=== PATIENT | male | born 1955 | race Caucasian/White ===

== ENCOUNTER 2024-07-02 16:34 | Emergency (ER) | payer OTHER, SELFPAY ==
[2024-07-02 16:55] VITALS: BP 143/78; PULSE 86; RESP 16; TEMP 36.4; O2SAT 91; BMI 25.9
[2024-07-02 21:37] VITALS: BP 153/96; PULSE 106; RESP 19; O2SAT 90
--- NOTE | 2024-07-02 21:48 | ED_ITS ---
HPI - Recheck/Abnormal Lab/Rx General: Chief Complaint: Recheck/Abnormal Lab/Rx Stated Complaint: [facility] Time Seen by Provider: 07/02/24 21:44 History of Present Illness: 68-year-old man who [place] emergency [place] the [place] with concern for low oxygen. In clinic today his oxygen saturations were in the upper 80s. Here he remains in the low 90s. He says he drove there and has not been feeling any more short of breath than usual. No chest pain. No altered mental status. He says he was also told that his lipids were elevated Related Data Allergies Allergy/AdvReac Type Severity Reaction Status Date / Time No Known Allergies Allergy Verified 07/02/24 21:41 Review of Systems Narrative: Constitutional symptoms: Negative except as documented in HPI. Skin symptoms: Negative except as documented in HPI. Eye symptoms: Negative except as documented in HPI. ENMT symptoms: Negative except as documented in HPI. Respiratory symptoms: Negative except as documented in HPI. Cardiovascular symptoms: Negative except as documented in HPI. Gastrointestinal symptoms: Negative except as documented in HPI. Genitourinary symptoms: Negative except as documented in HPI. Musculoskeletal symptoms: Negative except as documented in HPI. Neurologic symptoms: Negative except as documented in HPI. Psychiatric symptoms: Negative except as documented in HPI. Endocrine symptoms: Negative except as documented in HPI. Physical Exam Narrative: EXAM NARRATIVE: General: Alert, no acute distress. Skin: Warm, dry. Head: Normocephalic, atraumatic. Neck: Supple, trachea midline. Eye: Extraocular movements are intact. Ears, nose, mouth and throat: mucosa moist. Cardiovascular: Regular, Normal peripheral perfusion. Respiratory: Lungs are clear to auscultation, respirations are non-labored, breath sounds are equal, Symmetrical chest wall expansion. Gastrointestinal: Soft, Nontender, Non distended Musculoskeletal: Normal ROM, no deformity. Neurological: Alert and oriented, No focal neurological deficit observed. Psychiatric: Cooperative, appropriate mood & affect. Course Vital Signs: Vital signs: Vital Signs Temperature 97.5 F L 07/02/24 16:55 Pulse Rate 106 H 07/02/24 21:37 Respiratory Rate 19 H 07/02/24 21:37 Blood Pressure 153/96 07/02/24 21:37 Pulse Oximetry 90 07/02/24 21:37 Oxygen Delivery Me thod Room Air 07/02/24 21:37 MDM - Recheck/Abnormal Lab/Rx Medical Decision Making Patient's O2 sats are ranging between 89 and 92 here on room air. He is completely asymptomatic. He may need to be on oxygen chronically but not emergently. He says he can walk up 2 flights of stairs and he might get short of breath for him but otherwise he is completely asymptomatic. We are printing out blood gas he can get that to his primary and this may be that he needs to qualify for home oxygen. Assessment and plan: COPD hypoxemia. - Discharged home - Discussed plan with patient. Answered any questions. - Evaluation and treatment of this problem were appropriate in the emergency setting. Lab Data Laboratory Results Specimen Type Arterial 07/02/24 21:12 Sample Site Radial, right 07/02/24 21:12 ABG pH 7.49 (7.35-7.45) H 07/02/24 21:12 ABG pCO2 33.8 mmHg (35-45) L 07/02/24 21:12 ABG pO2 50.0 mmHg (80.0-100.0) L 07/02/24 21:12 ABG PO2/FiO2 Ratio 238 07/02/24 21:12 ABG HCO3 25.6 mmol/L (22-26) 07/02/24 21:12 ABG O2 Saturation 87.5 07/02/24 21:12 ABG Base Excess 2.8 mmol/L (-2.0-2.0) H 07/02/24 21:12 Davon Test Pos 07/02/24 21:12 A-a O2 Gradient 7.5 mmHg (5-10) 07/02/24 21:12 Hematocrit 56.5 % (42-52) H 07/02/24 21:12 Hgb O2 Saturation 86.1 % (95-100) L 07/02/24 21:12 Carboxyhemoglobin 1.5 %THgb (0.4-20.1) 07/02/24 21:12 Methemoglobin 0.0 % (0.4-1.5) L 07/02/24 21:12 Total Hemoglobin 18.4 g/dL (14-18) H 07/02/24 21:12 Sodium 145.0 mmol/L (131-143) H 07/02/24 21:12 Potassium 3.3 mmol/L (3.5-5.0) L 07/02/24 21:12 Glucose 89.0 mg/dL (70-115) 07/02/24 21:12 Ionized Calcium 1.4 mmol/L (1.1-1.4) 07/02/24 21:12 O2 Delivery Device Room air 07/02/24 21:12 FiO2 21.0 % 07/02/24 21:12 Gluing Machine Operator Automatic ID Jeromy 07/02/24 21:12 XR interpretation done by ED provider, pending radiology final review Discharge Plan Discharge Patient Disposition: Home Clinical Impression: COPD (chronic obstructive pulmonary disease), Tobacco dependence, Hypoxemia Condition: Stable Discharge Orders: Discharge ED (Routine); Ordered 07/02/24 Ordered By: Marga West Referrals: Maryan Love MD [Primary Care Provider] - Discharge Diet: Usual diet Discharge Activity: Increase activity as tolerated Patient Instructions: COPD (Chronic Obstructive Pulmonary Disease) (ED) Activity Restrictions/Additional Instructions: Thank you for choosing [facility] for your healthcare needs today. Please realize this is an emergency room and that we are providing you with a medical screening exam and this may not be complete and all inclusive of all the testing and or work up that you may need to determine your ailment or severity of your illness. You have been screened and evaluated and felt safe for discharge. Health conditions do change or evolve sometimes and as such it is important that you follow up with your Primary Doctor to be re checked, 3-5 days is a general good time frame for follow up. You are always welcome to return to the ED for re assessment if your symptoms are worsening or you have new concerns Coding Level of Care Code ED Tub Tender for [facility]
--- NOTE | 2024-07-02 21:49 | XRR_ITS ---
PROCEDURE INFORMATION: Exam: XR Chest Exam date and time: 07/02/2024 10:02 PM Age: 68 years old Clinical indication: Shortness of breath; Additional info: Low o2 sats TECHNIQUE: Imaging protocol: Radiologic exam of the chest. Views: 1 view. COMPARISON: No relevant prior studies available. FINDINGS: Lungs: Emphysematous changes. Left lower lobe atelectasis versus minimal infiltrate. Pleural spaces: Unremarkable. No pleural effusion. No pneumothorax. Heart/Mediastinum: Cardiomegaly. Bones/joints: Unremarkable. XR/XR chest 1V portable [id number] IMPRESSION: 1. Emphysematous changes. 2. Cardiomegaly. 3. Left lower lobe atelectasis versus minimal infiltrate.
--- NOTE | 2024-07-02 21:49 | PC.NURSE ---
pt requesting food, Dr. West notified and okayed. pt given sandwich, pudding, and sprite.
[2024-07-02 22:00] VITALS: BP 132/73; PULSE 98; O2SAT 91
[2024-07-02 22:06] LABS: ABG PCO2 33.8 mmHg (35-45); ABG PH Result 7.49 (7.35-7.45); Alveolar-Arterial Oxygen Gradi 7.5 mmHg (5-10); Arterial Blood Gas Hematocrit 56.5 % (42-52); Base Excess ABG 2.8 mmol/L (-2.0-2.0); Blood Gas Allen Test Pos; Blood Gas Operator Identificat BUSJA; Blood Gas Sample Site Radial, right; Blood Gas Sample Type Arterial; Carboxyhemoglobin 1.5 %THgb (0.4-20.1); HCO3 ABG 25.6 mmol/L (22-26); HGB O2 Sat 86.1 % (95-100); Ionized Calcium Level - ABG 1.4 mmol/L (1.1-1.4); Oxygen Device ROOM AIR; Oxygen Saturation ABG 87.5; PO2 FiO2 Ratio Arterial Blood 238; Potassium Level - ABG 3.3 mmol/L (3.5-5.0); Total Hemoglobin 18.4 g/dL (14-18)
[2024-07-02 22:32] VITALS: BP 143/68; PULSE 50; O2SAT 91
== END 2024-07-02 22:33 | disposition home or self-care (01) ==
PROVIDERS: Emergency Provider Emergency Medicine; PCP Family Medicine
DX: J44.9 Chronic obstructive pulmonary disease, unspecified (principal); R09.02 Hypoxemia; F17.200 Nicotine dependence, unspecified, uncomplicated
CPT/HCPCS: 71045; 80051; 82330; 82805; 99284